=== PATIENT | male | born 1955 | race Caucasian/White ===

== ENCOUNTER 2024-08-03 13:51 | Outpatient (CLI) | payer MEDICARE, OTHER, SELFPAY ==
--- NOTE | ~2024-08-03 | CT_ITS ---
EXAMINATION: CT sinus wo con DATE: 08/03/2024 14:01 INDICATION: Chronic ethmoid sinusitis. TECHNIQUE: Computed tomography (CT) of the paranasal sinuses was performed without intravenous contra st. Iterative reconstruction technique was employed. The dose-length product was 307.56 mGy-cm. COMPARISON: None FINDINGS: There is complete opacification of left frontal sinus. There is mild mucosal thickening in the ethmoid sinuses and moderate mucosal thickening in left sphenoid sinus. There is mild mucosal thi ckening in the maxillary sinuses. There are uncinectomies and ethmoidectomies. There is rightward dev iation of the nasal septum. The ostiomeatal units are patent. There are likely changes of ocular lens replacement surgeries. IMPRESSION: 1. Chronic sinusitis. Reviewed, dictated and finalized at location A. OMA PHARMACY TECHNICIAN IMPRESSION: 1. Chronic sinusitis.
== END 2024-08-03 13:52 | disposition home or self-care (01) ==
PROVIDERS: PCP Family Medicine; Visit Provider Otolaryngology
DX: J32.2 Chronic ethmoidal sinusitis (principal); J01.01 Acute recurrent maxillary sinusitis
CPT/HCPCS: 70486

== ENCOUNTER 2025-06-15 12:21 | Outpatient (CLI) | payer MEDICARE, OTHER, SELFPAY ==
--- NOTE | ~2025-06-15 | XR_ITS ---
EXAM/PROCEDURE: XR thoracic spine 2V HISTORY: R20.2 - Paresthesia of skin COMPARISONS: None. Technique: 3 views were obtained. FINDINGS: Vertebral bodies: There is minimal wedging deformity of T12 and L1. There is mild wedging deformity of T11. There is evidence of significant degenerative disc disease at C6-7. Alignment: There is minimal scoliosis convex to the left in the thoracic spine. There is osteophyte formation at multiple levels. IMPRESSION: No acute findings Reviewed, dictated and finalized at location A. IMPRESSION: No acute findings
--- NOTE | ~2025-06-15 | XR_ITS ---
XR lumbar spine 2-3V Indication: R20.2 - Paresthesia of skin Comparison: None Findings: The vertebral heights are intact. No fracture or subluxation. Severe loss of disc height at L5-S1. Soft tissues unremarkable Impression: No acute abnormality. Reviewed, dictated and finalized at location P. Impression: No acute abnormality.
--- OUTSIDE RECORDS SUMMARY | 2025-06-15 13:06 | XMS_ITS | Encounter Summary ---
Author Organization [facility] Address [address] [place] [address] Care Team Providers Care Department Of Mathematics Chair Name Role Phone Andrea Mayo DPM Unavailable [phone] Esther Bailey MD Primary Care Provider [phone] Ranjan Morel MD Primary Care Provider [phone] Encounter Details Date Type Department Care Team (Late st Contact Info) Description 11/06/2022 [employer] Message Enc [facility] [address] [facility] [address] [place], [place] [id number] Cordell Stover MD [facility]. [facility] [address] [place], [place] [id number] Blood pressure Social History Tobacco Use Types Packs/Day Years Used Date Smoking Tobacco: Never Smokeless Tobacco: Never Alcohol Use Standard Drinks/Week Comments No 0 (1 standard drink = 0.6 oz pur e alcohol) AUDIT-C Answer Date Recorded Frequency of Alcohol Consumption Monthly or less 12/16/2018 Average Number of Drinks Not on file 019 Frequency of Binge Drinking Not on file 09/2018 PHQ-2 Answer Date Recorded PHQ-2 Score - If the patient scores above 3, please move on to questions 3-9 0 01/24/2022 Sex and Gender Information Value Date Recorded Sex Assigned at Not on file Legal Sex Male 2:42 PM CDT Gender Identity Male 11/20/2021 1:30 PM CDT Sexual Orientation Not on file COVID-19 Exposure Response Date Recorded In the last 10 days, have yo u been in contact with someone who was confirmed or suspected to have Coronavirus/COVID-19? No / Unsure 11/07/2022 10:46 AM CDT documented as of this encounter Progress Notes * Tonya Alcantar RN - 11/06/2022 2:06 PM CDT [employer] message sent to the patient with the above information from Alice AWAN. * EMPERATRIZ Gonzalez - 11/06/2022 1:51 PM CDT Recommend he see PCP, tanisha November. documented in this encounter Plan of Treatment Upcoming Encounters Date Type Department Care Team (Late st Contact Info) Description 12/15/2025 8:45 AM CDT Office Visit [facility] [address] [place], [place] [id number] Cordell Stover MD [facility]. 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
--- OUTSIDE RECORDS SUMMARY | 2025-06-15 13:06 | XMS_ITS | Encounter Summary ---
Author Organization [facility] Address [address] [place] [address] Care Team Providers Care Head Of Advertising Name Role Phone Andrea Mayo DPM Unavailable [phone] Esther Bailey MD Primary Care Provider [phone] Ranjan Morel MD Primary Care Provider [phone] Encounter Details Date Type Department Care Team (Late st Contact Info) Description 01/16/2023 MyChart Message Enc [facility] Family Medicine [facility] [address] [place] [address] Esther Bailey MD [address] [place] [address] Blood Pressure Social History Tobacco Use Types Packs/Day Years [...] PM CDT Sexual Orientation Not on file documented as of this encounter Plan of Treatment Upcoming Encounters Date Type Department Care Team (Late st Contact Info) Description 12/15/2025 8:45 AM CDT Office Visit [facility] THREE [facility] [place] [address] [place] [address] Cordell Stover MD Three [facility]. 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
--- OUTSIDE RECORDS SUMMARY | 2025-06-15 13:06 | XMS_ITS | Encounter Summary ---
Author Organization [facility] Address [address] [place] [address] Care Team Providers Care Events Traffic Controller Name Role Phone Andrea Mayo DPM Unavailable [phone] Esther Bailey MD Primary Care Provider [phone] Ranjan Morel MD Primary Care Provider [phone] Encounter Details Date Type Department Care Team (Late st Contact Info) Description 11/06/2022 [place] Message Enc [facility] Medical Group [facility] Medicine [address] [address] [facility] Blood pressure Social History Tobacco Use Types [...] AM CDT documented as of this encounter Plan of Treatment Upcoming Encounters Date Type Department Care Team (Late st Contact Info) Description 12/15/2025 8:45 AM CDT Office Visit [facility] THREE [facility] [place] [address] [place] [address] Cordell Stover MD Three [facility]. 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
--- OUTSIDE RECORDS SUMMARY | 2025-06-15 13:06 | XMS_ITS | Encounter Summary ---
Author Organization [facility] Address [address] [place] [address] Care Team Providers Care Host/Hostess Restaurant Name Role Phone Andrea Mayo DPM Unavailable [phone] Esther Bailey MD Primary Care Provider [phone] Ranjan Morel MD Primary Care Provider [phone] Encounter Details Date Type Department Care Team (Late st Contact Info) Description 11/06/2022 MyChart Message Enc [facility] Family Medicine [facility] [address] [place] [address] Esther Bailey MD [address] [place] [address] Blood Pressure Social History Tobacco [...] Recorded In the last 10 days, have daniele u been in contact with someone who was confirmed or suspected to have Coronavirus/COVID-19? No / Unsure 11/07/2022 10:46 AM CDT documented as of this encounter Plan of Treatment Upcoming Encounters Date Type Department Care Team (Late st Contact Info) Description 12/15/2025 8:45 AM CDT Office Visit [facility] THREE [facility] [place] [address] [place] [address] Cordell Stover MD Three [facility]. 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
--- OUTSIDE RECORDS SUMMARY | 2025-06-15 13:06 | XMS_ITS | Clinical Summary ---
Author Organization [facility] Address [address] [place] [address] Phone Care Team Providers Care Internet Sales Consultant Name Role Phone Jeffery Hurst MD Primary Care Provider [phone] Allergies Active Allergy Reactions Criticality Noted Date Comments Weston Inhibitors Rash High 12/10/2017 Fatigue, muscle weakness,Impotence Aspirin Other (See Comments) High 12/10/2017 Throat tightness and itching, but taes a daily baby aspirin and is able to tolerate. Medications multivitamin ( RX) 60 mg iron-1 mg tablet Take 1 tablet by mouth one (1) time a day Active cholecalciferol (VITAMIN D3) 5,000 unit capsule Take 5,000 Units by mouth one (1) time a day Active hydroCHLOROthiazi de (HYDRODIURIL) 25 MG tablet Take 25 mg by mouth one (1) time a day Takes 1/2 tab Active nebivolol (BYSTOLIC) 10 MG tablet Take 10 mg by mouth one (1) time a day Active pseudoephedrine-g uaifenesin (MUCINEX D) 60-600 mg 12 hr tablet Take 1 tablet by mouth daily as needed for congestion Active atorvastatin (LIPITOR) 10 MG tablet Take 10 mg by mouth one (1) time a day Active tiZANidine (ZANAFLEX) 4 MG tablet Take 4 mg by mouth every 6 (six) hours as needed Active cetirizine (ZYRTEC) 10 MG tablet Take 10 mg by mouth one (1) time a day Active montelukast (SINGULAIR) 10 mg tablet Take 10 mg by mouth one (1) time a day Active fluticasone-sod chl-sod bicarb 50 mcg- 0.9 % ksps by Nasal route Active azelastine (ASTELIN) 137 mcg (0.1 %) nasal spray 1 spray by Nasal route 2 (two) times a day Active omega 4-wyf-ouy-fish oil 356 mg (100 mg- 256 mg)-554 mg capsule Take by mouth Activ e potassium gluconate 595 mg (99 mg) tablet Take 1 tablet by mouth one (1) time a day Active coenzyme Q10 (CO Q-10) 100 mg capsule Take 1 capsule by mouth one (1) time a day Active resveratrol 100 mg capsule Take by mouth Activ e BILBERRY ORAL Take 1,000 mg by mouth 2 (two) times a day Active aspirin 81 MG EC tablet Take one tablet (81 mg total) by mouth 2 (two) times a day Pt states he has an allergy to aspirin but is able to take the 81mg baby aspirin. 82 tablet 1 8 Active meloxicam (MOBIC) 15 MG tablet Take one half tablet (7.5 mg total) by mouth one (1) time a day 30 tablet 8 Active amitriptyline (ELAVIL) 25 MG tablet Take one tablet (25 mg total) by mouth nightly 30 tablet 8 Active Active Problems Problem Noted Date Diagnosed Date History of total left knee replacement 8 Osteoarthritis of left knee 12/28/2017 Family History Medical History Relation Name Comments Hepatitis Brother 1 Diabetes Brother 2 Diabetes Brother 3 Hypertension Brother 3 Diabetes Brother 4 Hypertension Brother 4 Diabetes Father Heart disease Father Hypertension Father Cancer Mother Myasthenia gravis Mother Relation Name Status Comments Brother 1 Brother 2 Alive Brother 3 Alive Brother 4 Alive Father Mother Social History Tobacco Use Types Packs/Day Years Used Date Smoking Tobacco: Never Smokeless Tobacco: Never Alcohol Use Standard Drinks/Week Comments Yes 0 (1 standard drink = 0.6 oz pur e alcohol) seldom Intimate Partner Safety Answer Date Rec orded Intimate Partner Safety Not At Risk 10/17/19 24 Intimate Partner Safety Not At Risk 10/17/19 24 Intimate Partner Safety Not At Risk 10/17/19 24 Intimate Partner Safety Not on file 10/17/19 24 Intimate Partner Safety Not At Risk 03/02/20 24 Sex and Gender Information Value Date Recorded Sex Assigned at Not on file Legal Sex Male 3:37 PM CDT Gender Identity Not on file Sexual Orientation Not on file Last Filed Vital Signs Vital Sign Reading Time Taken Comments Blood Pressure 132/67 12/29/2017 10:27 AM CDT Pulse 80 12/29/2017 10:27 AM CDT Temperature 36.6 C (97.8 F) 12/29/2017 10:27 AM CDT Respiratory Rate 17 12/29/2017 10:27 AM CDT Oxygen Saturation 95% 12/29/2017 10:27 AM CDT Inhaled Oxygen Concentration - - Weight 101 kg (222 lb 11.2 oz) 12/28/2017 11:22 AM CDT Height 177.8 cm (5' 10) 12/28/2017 11:22 AM CDT Body Mass Index 31.95 12/28/2017 11:22 AM CDT Plan of Treatment Health Maintenance Due Date Last Done Comments Colonoscopy Every 6 Months 1956 Colorectal Cancer Screening Annual FOBT/FIT Test 10/24 Colorectal Cancer Screening Cologuard 1956 Colorectal Cancer Screening Flex Sigmoidoscopy 957 Annual Depression Screening 10/25/1967 Hepatitis C Antibody Screen 1974 Colorectal CA Screen 10 Year Colonoscopy 2001 Colorectal Cancer Screening 2001 Pneumococcal Vaccine Age 50+ (1 of 1 - PCV) 2006 Flu Vaccine (#1) 04/17/2025 Influenza Vaccine 04/17/2025 RSV Immunization Pa tients or 60+ Years (1 - 1-dose 75+ series) 10/25/2031 Medical Devices Implanted Type Area Secretary Office Clerk Device Identifier Shelf Expiration Date Model / Serial / Lot Implant Patella [id number] - [id number] Implanted:Qty: 1 on 12/28/2017 by Monico Foster MD at [facility] Knee Left: Knee CFOR [id number] / [id number] Kit Knee Cr Ipoly Itotal - [id number] Implanted:Qty: 1 on 12/28/2017 by Monico Foster MD at [facility] Knee Left: Knee CFOR [id number] / [id number] / Cement Bone Gentamicin Gmv 40g - [id number] Implanted:Qty: 2 on 12/28/2017 by Monico Foster MD at [facility] Orthopedic Miscellaneous Left: Knee J[employer]J-ORTH [id number] Insurance BLUE CROSS OUT OF STATE [address] [id number] Advance Directives For more information, please contact: [phone] (7AM - 5PM [facility], 7 days a week) * Full Code (Latest Code Status on File) Date Activated Date Inactivated Comments 12/28/2017 3:49 PM 12/29/2017 4:48 PM Care Teams Internet Sales Consultant Relationship Specialty Start Date End Date Jeffery Hurst MD [address] [place] [address] PCP - General Internal Medicine 04/13/15
--- OUTSIDE RECORDS SUMMARY | 2025-06-15 13:06 | XMS_ITS | Clinical Summary ---
Author Organization [facility] Address [facility] [place] [address] Care Team Providers Care Marble Mechanic Helper Name Role Phone Andrea Mayo DPM Unavailable [phone] Ranjan Morel MD Primary Care Provider [phone] Allergies Active Allergy Reactions Criticality Noted Date Comments Weston Inhibitors Joint Pain High 12/16/2018 Lisinopril Myalgias 09/25/2022 Medications Multiple Vitamins-Minerals (CENTRUM SILVER OR) Active Coenzyme I84-[id number] E 100-150 MG-UNIT Cap Take 1 capsule by mouth daily. Active CPAP MACHINE Take 1 Device by mouth nightly. Active omeprazole 40 MG capsule Take 1 capsule (40 mg total) by mouth daily. Active cetirizine (ZYRTEC) 10 MG tablet Take 1 tablet (10 mg total) by mouth daily. Active Magnesium 200 MG Tab Take 1 tablet by mouth. Active tiZANidine (ZANAFLEX) 4 MG tabletIndications:Ten neftali headache Take 1 tablet (4 mg total) by mouth every 6 (six) hours as needed. 90 tablet 1 03/24/20 23 Active omega-3 fatty acid (FISH OIL) 500 MG capsule Take 1 capsule (500 mg total) by mouth daily. Active rosuvastatin (CRESTOR) 10 MG tabletIndications:Mix ed hyperlipidemia Take 1 tablet (10 mg total) by mouth every other day. 12/08/19 24 Active meloxicam (MOBIC) 15 MG tablet daily. 08/01/20 24 Active ipratropium (ATROVENT) 0.03 % nasal spray 2 sprays 2 (two) times daily. 10/20/19 Active fluticasone propionate (FLONASE) 50 MCG/ACT nasal spray by Nasal route as needed for Rhinitis. Active carvedilol (COREG) 12.5 MG tabletIndications:Diz ziness,PAC (premature atrial contraction),Irregula r heart rate,Sinus tachycardia by electrocardiogram TAKE 1 TABLET BY MOUTH TWICE DAILY 180 tablet 3 01/04/20 Active telmisartan (MICARDIS) 20 MG Tab Take 1 tablet (20 mg total) by mouth daily. New dose 30 tablet 2 05/18/20 25 Active telmisartan (MICARDIS) 40 MG tablet Take 1 tablet (40 mg total) by mouth daily. 10/03/19 025 Discontin ued(Reord er) Active Problems Problem Noted Date Diagnosed Date Acute recurrent maxillary sinusitis 05/01/2025 Chronic ethmoidal sinusitis 05/01/2025 Leukopenia 05/01/2025 Prediabetes 05/01/2025 Benign paroxysmal positional vertigo, unspecified laterality 06/20/2019 Abdominal cramping 06/20/2019 Environmental allergies 12/16/2018 Varicose veins of lower extr emity, unspecified laterality, unspecified whether complicated 12/16/2018 Essential hypertension 12/16/2018 History of knee replacement, unspecified lateral ity 12/16/2018 Hammer toe, unspecified laterality 12/16/2018 PVC (premature ventricular contraction) 12/17/19 19 Tension headache 12/16/2018 Chronic sinusitis, unspecified location 12/17/19 19 SATYA (obstructive sleep apnea) 12/16/2018 Sinus tachycardia PAC (premature atrial contraction) Irregular heart rate HLD (hyperlipidemia) Class 2 severe obesity due t o excess calories with serious comorbidity and body mass index (BMI) of 36.0 to 36.9 in adult Resolved Problems Problem Noted Date Diagnosed Date Resolved Date Preventative health care 05/01/2025 Hyponatremia 12/16/2018 07/26/2021 Hypokalemia 12/16/2018 07/26/2021 Earache 12/16/2018 03/18/2019 Hyperlipidemia, unspecified hyperlipidemia type 12/16/2018 07/26/2021 Encounters Date Type Department Care Team Description 05/29/2025 Results Follow-Up Octavio light [facility], [address] [address] Corie Lopez, RN [facility] - [address] [facility] - [facility] 05/09/2025 MyChart Message Enc [facility], [address] [address] Trinidad Pitts MD Blood Pressure report for 1 week 05/05/2025 11:30 AM CDT Telephone [facility], [address] [address] Trinidad Pitts MD Holter Monitor 05/01/2025 2:00 PM CDT Procedure Only [facility], [place] [address] [place] [address] Trinidad Pitts MD 05/01/2025 Orders Only [facility], [address] [address] Trinidad Pitts MD 05/01/2025 Travel 05/01/2025 Telephone [facility], [address] [address] Maricruz Phan, PA Concerns 05/01/2025 Telephone [facility], [address] [address] Trinidad Pitts MD Advice (Nurse Triage - After Hours ([id number]) ) from Last 3 Months Immunizations Immunization Administration Dates Next Due Flucelvax 6 Months+ (Prefill ed Syringe) 05/14/2020 Fluzone 6 Months+ Quad (0.5 mL Prefilled Syringe) 06/24/2019 Fluzone High Dose - >Age 65 (Prefilled Syringe) 05/18/2023,05/01/2022 Hib (PedvaxHIB)3 Dose 01/11/2019 Influenza Adult (Generic) 05/08/2022,04/2022,05/15/2021,2019,06/24/2019 [employer] ([employer]) COVID-19 AD26 VACCINE 0.5 ML IM SUSP 10/21/2020 MODERNA COVID-19 BIVALENT (1 2+), MRNA, LNP-S, PF 06/17/2022 MODERNA COVID-19 (HIGH SCHOOL COORDINATOR MILAGROS JOSE), MRNA, LNP-S, PF, 50 MCG/ 0.25 ML DOSE 12/31/2021 PFIZER COVID-19 (COLON CAP), MRNA, LNP-S, PF, 30 MCG/0.3 ML MOODY-SUCROSE, IM 05/18/2023 Pneumococcal (Pneumovax 23) 01/24/2022, 9 Shingrix 04/12/2021,01/24/2021 Tdap (Generic) 03/08/2019,01/11/2019 Family History Medical History Relation Comments Diabetes Brother 1 Heart Disease Brother 1 poss CHF Diabetes Brother 3 Hypertension Brother 3 Stroke Brother 3 TIAs Diabetes Brother 4 Heart Disease Brother 4 Hypertension Brother 4 Arthritis Father Diabetes Father Heart Attack Father Heart Disease Father Hypertension Father Stroke Father Cancer Maternal Grandfather colon cance r Cancer Mother uterine Other Mother myasthenia gravi da Arthritis Paternal Grandfather SD Paternal Grandfather Relation Status Comments Brother 1 Alive Brother 2 of hepatiti s c Brother 3 Alive Brother 4 Alive Daughter Alive Father (Age 75) of blood clot after heart attack Maternal Grandfather Mother (Age 82) of causes , has myesthenia grava, cancer of female organs Paternal Grandfather Son Alive Social History Tobacco Use Types Packs/Day Years Used Date Smoking Tobacco: Never Smokeless Tobacco: Never Tobacco Cessation:Counseling Given: Not Answered Alcohol Use Standard Drinks/Week Comments No 0 (1 standard drink = 0.6 oz pur e alcohol) AUDIT-C Answer Date Recorded Frequency of Alcohol Consumption Monthly or less 12/16/2018 Average Number of Drinks Not on file 019 Frequency of Binge Drinking Not on file 09/2018 PHQ-2 Answer Date Recorded Patient Health Questionnaire-2 Score 0 03/24/2023 Sex and Gender Information Value Date Recorded Sex Assigned at Not on file Legal Sex Male 2:42 PM CDT Gender Identity Male 11/20/2021 1:30 PM CDT Sexual Orientation Not on file Last Filed Vital Signs Vital Sign Reading Time Taken Comments Blood Pressure 138/82 12/08/2024 8:20 AM CDT Pulse 69 12/08/2024 8:20 AM CDT Temperature 36.4 C (97.5 F) 05/26/2023 8:21 AM CDT Respiratory Rate 16 05/26/2023 8:21 AM CDT Oxygen Saturation 97% 12/08/2024 8:20 AM CDT Inhaled Oxygen Concentration - - Weight 107.5 kg (237 lb) 12/08/2024 8:20 AM CDT Height 175.9 cm (5' 9.25) 12/08/2024 8:20 AM CD T Body Mass Index 34.75 12/08/2024 8:20 AM CDT Plan of Treatment Upcoming Encounters Date Type Department Care Team (Late st Contact Info) Description 12/15/2025 8:45 AM CDT Office Visit [facility], [facility] [address] [place], [place] [id number] Trinidad Pitts MD Three [facility]. [facility] [address] [place], [place] [id number] Health Maintenance Due Date Last Done Comments Annual Medicare Wellness Visit 2021 PHQ-2 (Physician [place]) 08/17/2024 COVID-19 Vaccine ( season) 2025 05/18/2023, 05/06/2023, 06/17/2022, Additional history exists Influenza Adult (#1) 2025 05/20/2024, 05/18/2023, 05/08/2022, Additional history exists Colorectal Cancer Screening Colonoscopy (10 Years) 07/08/2025 DTaP, Tdap and Td Vaccines (3 - Td or Tdap) 03/08/2029 03/08/2019, 01/11/2019 Zoster Vaccines Completed 04/12/2021, 01/24/2021 RSV Immunization or 60+ Years Completed 05/06/2023 Hepatitis C Completed 05/19/2023 Pneumococcal Vaccine: 50+ Years Completed 12/31/2023, 06/04/2023, 01/24/2022, Additional history exists Hepatitis A Vaccines Aged Out No long er eligible based on patient's age to complete this topic Meningococcal B Vaccine Aged Out No l onger eligible based on patient's age to complete this topic Meningococcal Vaccine Aged Out No kaylie volodymyr eligible based on patient's age to complete this topic RSV Immunizations Under 20 Months Aged Out No longer eligible based on patient's age to complete this topic Medical Devices Implanted Type Area Breast Trimmer Device Identifier Shelf Expiration Date Model / Serial / Lot Headed Screw Implanted:Qty: 1 on 02/04/2019 by Andrea Mayo DPM at [facility] Screw Left: Foot [employer] [id number] / / Yanet Flexspan Flexible Hinge Toe W/ Grommets Implanted:Qty: 1 on 02/04/2019 by Andrea Mayo DPM at [facility] Left: Foot [employer] 05/10/2026 [id number] / / [id number] Holt Flexspan Fleible Hinge Toe With Grommets Implanted:Qty: 1 on 06/10/2019 by Andrea Mayo DPM at [facility] N/A: Foot [employer] 09/03/2025 [id number] / / [id number] Explanted Type Area Breast Trimmer Device Identifier Shelf Expiration Date Model / Serial / Lot Headed Screw Explanted:Qty: 1 on 02/04/2019 by Andrea Mayo DPM at [facility] Screw Left: Foot [employer] [id number] / / Procedures Procedure Name Priority Date/Time Associated Diagnosis Comments MOBILE CONTINUOUS TELEMETRY Routine 05/24/2025 2:54 PM CDT Atrial fibrillation, unspecified type (CMS/HCC HHS/HCC) ELECTROCARDIOGRAM (NON MIDMARK ACQUIRED) Routine 05/01/2025 1:55 PM CDT Atrial fibrillation, unspecified type (CMS/HCC HHS/HCC) HEPATITIS C ANTIBODY Routine 05/19/2023 7:18 AM CDT Encounter for hepatitis C screening test for low risk patient from Last 3 Months or Most Recently Relevant to Health Maintenance Results * CLINIC - [address] MCT - Today (05/24/2025 2:54 PM CDT) Impressions [facility] - 05/24/2025 2:54 PM CDT [place], [place] [address] MOBILE CARDIAC DIRECTOR SUPPLY REPORT Patient Name: Parrish Hurley : 1955 Client Project Coordinator Date: 05/06/2025 End Date: 05/19/2025 Performed At: [place], [place] Interpreting Gunstock Spray Unit Adjuster: Trinidad Pitts MD PCP: Ranjan Morel MD Ordering Provider: Trinidad Pitts MD INDICATION: Atrial fibrillation DURATION OF MONITORIN days NUMBER OF TRANSMISSIONS: 16 (12 auto transmissions, 4 manual, 0 periodic) INTERPRETATION: A 14-day mobile cardiac monitor worker analyzed. Interpretable data was 13 days, 0 hours and 24 minutes (98% of monitoring period). The baseline rhythm was sinus rhythm. There was not atrial fibrillation or atrial flutter observed. . A minimum heart rate was 71 bpm on 05/12/2025 at 12:59 PM. A maximum heart rate in sinus rhythm was 128 bpm on 05/19/2025 at 9:37 AM. There were 0 pauses observed. The manual triggered episodes had no reported symptoms correlated with sinus rhythm or sinus tachycardia with frequent premature atrial complexes. 1 event was consistent with possible atrial fibrillation. The auto triggered episodes were for brief nonsustained supraventricular runs, premature supraventricular complexes, premature ventricular complexes, ventricular couplets, and ventricular trigeminy. There was a high overall burden of supraventricular ectopy at 18%. CONCLUSION: 14-day mobile cardiac telemetry was only notable for frequent supraventricular ectopy. Symptom triggered events largely correlated with sinus rhythm with frequent PACs. There was 1 event which may have correlated with atrial fibrillation but the overall burden of this was very low. Interpreting Gunstock Spray Unit Adjuster: Dr. Trinidad Pitts us Trinidad Pitts MD CV VASCULAR ORDERABLES Ally l Result Performing Organization Address City/[facility]/ZIP Co de Phone Number [facility] * ELECTROCARDIOGRAM (05/01/2025 1:55 PM CDT) 05/01/2025 1:55 PM CDT Narrative [facility] - 05/02/2025 9:19 PM CDT [facility] Test Date: 2025-05-01 Pat Name: PARRISH HURLEY Department: 112 Room: Gender: Male Wire Setter: : 1955 Requested By: TRNIIDAD PITTS Order Number: [id number] Genet Pitts Measurements Intervals [place] Rate: 91 P: 8 MO: 138 QRS: 23 QRSD: 93 T: 34 QT: 337 QTc: 416 Interpretive Statements SINUS RHYTHM WITH OCCASIONAL SUPRAVENTRICULAR PREMATURE COMPLEXES PROBABLE INFERIOR MYOCARDIAL INFARCTION, PROBABLY OLD Procedure Note Trinidad Pitts MD - 05/02/2025 [facility] Date: 2025-05-01 Pat Name: PARRISH HURLEY Department: 112 Room: Gender: Male Wire Setter: : 1955 Requested By: TRINIDAD PITTS Order Number: [id number] Genet Pitts Measurements Intervals [place] Rate: 91 P: 8 MO: 138 QRS: 23 QRSD: 93 T: 34 QT: 337 QTc: 416 Interpretive Statements SINUS RHYTHM WITH OCCASIONAL SUPRAVENTRICULAR PREMATURE COMPLEXES PROBABLE INFERIOR MYOCARDIAL INFARCTION, PROBABLY OLD us Trinidad Pitts MD PROCEDURES-ORDERABLE NO MONTY RGE Final Result [facility] * HEPATITIS C ANTIBODY (05/19/2023 7:18 AM CDT) HEPATITIS C AB NON-REACTI VE NON-REACT MILI 05/19/2023 9:50 PM CDT [facility] Comment: ANTIBODIES TO HCV NOT DETECTED. DOES NOT EXCLUDE THE POSSIBILITY OF EXPOSURE TO HCV. 05/19/2023 7:18 AM CDT Esther Bailey MD LABORATORY Final Result [facility] [address] [place] [id number], [id number] from Last 3 Months or Most Recently Relevant to Health Maintenance Insurance MEDICARE [facility] Care Teams Marble Mechanic Helper Relationship Specialty Start Date End Date Ranjan Morel MD [address] [place] [address] PCP - General FAMILY PRACTICE 01/06/24 Andrea Mayo DPM [address] [facility] [address] [place] [address] Referring Physician PODIATRY/SURGERY 01/28/19
--- OUTSIDE RECORDS SUMMARY | 2025-06-15 13:06 | XMS_ITS | Encounter Summary ---
Author Organization [facility] Address [address] [place] [address] Care Team Providers Care Last Model Department Supervisor Name Role Phone Ranjan Morel MD Primary Care Provider Andrea Mayo DPM Unavailable [phone] Jb Crocker DO Primary Care Provider [phone] Esther Bailey MD Primary Care Provider [phone] Ranjan Morel MD Primary Care Provider [phone] Encounter Details Date Type Department Care Team (Late st Contact Info) Description 07/27/2019 Platypit Message Enc [facility] Family Medicine [address] [address] Ranjan Morel MD [address] [place] [address] Other Social History Tobacco Use Types Packs/Day Years Used Date Smoking Tobacco: Never Smokeless Tobacco: Never Alcohol Use Standard Drinks/Week Comments No 0 (1 standard drink = 0.6 oz pur e alcohol) AUDIT-C Answer Date Recorded Frequency of Alcohol Consumption Monthly or less 12/16/2018 Average Number of Drinks Not on file 019 Frequency of Binge Drinking Not on file 09/2018 Sex and Gender Information Value Date Recorded Sex Assigned at Not on file Legal Sex Male 2:42 PM CDT Gender Identity Male 11/20/2021 1:30 PM CDT Sexual Orientation Not on file documented as of this encounter Plan of Treatment Upcoming Encounters Date Type Department Care Team (Late st Contact Info) Description 12/15/2025 8:45 AM CDT Office Visit [facility], [address] [place] [address] Cordell Stover MD Three [facility]. 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 documented as of this encounter Care Teams Last Model Department Supervisor Relationship Specialty Start Date End Date Ranjan Morel MD PCP - General FAMILY PRACTICE 12/06/18 07/25/20 Jb Crocker DO [address] [facility] [address] [place] [address] PCP - General FAMILY PRACTICE 07/26/20 08/05/22 Esther Bailey MD [address] [place] [address] PCP - General FAMILY PRACTICE 09/15/22 01/05/24 Ranjan Morel MD [address] [place], [place] [id number] PCP - General FAMILY PRACTICE 01/06/24 Andrea Mayo DPM [address] [place] [address] Referring Physician PODIATRY/SURGERY 01/28/19 documented as of this encounter
== END 2025-06-15 12:22 | disposition home or self-care (01) ==
PROVIDERS: PCP Family Medicine; Visit Provider Nurse Practitioner Family
DX: R20.2 Paresthesia of skin (principal)
CPT/HCPCS: 72070; 72100